=== PATIENT | male | born 1990 | race Caucasian/White ===

== ENCOUNTER 2016-09-26 00:12 | Emergency (ER) | payer OTHER ==
[~2016-09-26] VITALS: Ht 167.6 cm; Wt 63.0 kg
[2016-09-26] MEDS ORDERED: NAPROSYN500 MG PO (02:06)
[2016-09-26 02:38] VITALS: BP 112/67
== END 2016-09-26 02:38 | disposition home or self-care (01) ==
LOC: EME 00:12
DX: S00.03XA Contusion of scalp, initial encounter (principal); F07.81 Postconcussional syndrome; V49.40XA Driver injured in collision with unspecified motor vehicles in traffic accident, initial encounter; Y92.410 Unspecified street and highway as the place of occurrence of the external cause; F17.200 Nicotine dependence, unspecified, uncomplicated; Z71.6 Tobacco abuse counseling
CPT/HCPCS: 70450; 99281; 99284

== ENCOUNTER 2017-09-29 13:54 | Emergency (ER) | payer OTHER ==
[~2017-09-29] VITALS: Ht 172.7 cm; Wt 61.5 kg
[~2017-09-29 13:54] MED LIST: NAPROSYN500 MG PO
[2017-09-29 14:57] VITALS: BP 136/80
[2017-09-29] MEDS ORDERED: BACTROBAN OINTM22 GM TP (15:33)
[2017-09-29] MEDS ORDERED: NORCO 5/3251 TABLET PO (15:33)
[2017-09-29] MEDS ORDERED: KEFLEX500 MG PO (15:33)
== END 2017-09-29 15:46 | disposition home or self-care (01) ==
LOC: EME 13:54
DX: L03.211 Cellulitis of face (principal); Z88.0 Allergy status to penicillin; Z87.891 Personal history of nicotine dependence
CPT/HCPCS: 99281; 99283